=== PATIENT | male | born 1990 | race Caucasian/White ===

== ENCOUNTER → 2017-06-04 | Outpatient (CLI) | payer OTHER | END | disposition home or self-care (01) | LOC: CFH 08:12 | PROVIDERS: ATTEND Nurse Practitioner Primary Care | DX: I07.1 Rheumatic tricuspid insufficiency (principal); F06.31 Mood disorder due to known physiological condition with depressive features; K21.9 Gastro-esophageal reflux disease without esophagitis; Z80.8 Family history of malignant neoplasm of other organs or systems | CPT/HCPCS: 93306 ==